=== PATIENT | male | born 1985 | race American Indian/Alaskan Native ===

== ENCOUNTER 2017-04-30 16:32 | Emergency (ER) | payer SELFPAY ==
[2017-04-30 17:01] VITALS: BP 117/61
== END 2017-04-30 19:20 | disposition left against medical advice (07) ==
LOC: ED 16:32
DX: R73.9 Hyperglycemia, unspecified (principal); Z53.21 Procedure and treatment not carried out due to patient leaving prior to being seen by health care provider
CPT/HCPCS: 82962

== ENCOUNTER 2018-04-12 09:09 | Emergency (ER) | payer SELFPAY ==
[2018-04-12 09:18] VITALS: BP 169/101
--- NOTE | 2018-04-12 09:55 | Emergency Department Report ---
ED Eye Problem HPI - General Chief complaint: Eye Problems Stated complaint: CANT SEE OUT OF LT EYE/RT EYE BLURR Time Seen by Provider: 04/12/18 09:35 Source: patient Mode of arrival: Ambulatory Limitations: No Limitations - History of Present Illness Initial comments: Mr. Hinkle is a very pleasant 34-year-old male with history of insulin-dependent diabetes since age of 12 who presents with blurry vision. He has history of severe diabetic retinopathy. He has been followed closely over the years by chain machine operator Dr. Damico on the eye center in [place]. He's had multiple interventions including laser surgery and eye injections to treat diabetic retinopathy. Last eye exam by Dr. Salas was in November four months prior. Unfortunately as well as the staff. Consequently he no longer has health insurance. He has started a new job without the benefit of health insurance. He is unable to afford health insurance to the [employer]. Over the 2 weeks ago minimal vision out of the left eye. On the right eye he has had very vision. Denies pain. Denies headache. Denies other neurological complaints such as unsteady gait or speech disturbances. Denies paralysis or paresthesias. PCP Dr. Binta Boyer. In November, chain machine operator strongly encouraged him to obtain the care of an editorial manager. He reports that his Hemoglobin A1c is 6.3. He takes metformin and Tresiba for diabetes treatment. -: Gradual, week(s) (2) Onset Description: gradual Location: right eye, left eye If Injury: none Eye Symptoms: decreased vision, blurry vision Severity: severe Context: other (diabetic retinopathy) Associated Symptoms: none - Related Data Allergies Allergy/AdvReac Type Severity Reaction Status Date / Time No Known Allergies Allergy Verified 04/12/18 09:12 ED Review of Systems ROS: Stated complaint: CANT SEE OUT OF LT EYE/RT EYE BLURR Other details as noted in HPI Comment: All other systems reviewed and negative Constitutional: denies: fever, malaise Respiratory: denies: cough Cardiovascular: denies: chest pain Endocrine: denies: excessive sweating Gastrointestinal: denies: nausea, vomiting ED Past Medical Hx - Past Medical History Previous Medical History?: Yes Hx Hypertension: Yes (non-compliant) Hx Diabetes: Yes - Surgical History Past Surgical History?: No - Social History Smoking Status: Former Smoker Substance Use Type: Alcohol ED Physical Exam - General Limitations: No Limitations General appearance: alert, in no apparent distress - Head Head exam: Present: atraumatic, normocephalic - Eye Eye exam: Present: normal appearance - Expanded Eye Exam Expanded Eyelids: Normal Inspection: Right (normal bilaterall), Laceration: Bilateral (none), Stye: Bilateral (none), Erythema: Bilateral (none), Swelling: Bilateral (none) Pupils: Regular, Round: Bilateral, Reactive: Bilateral Sclera/Conjunctival: Normal Inspection: Bilateral Anterior chamber: Normal Inspection: Bilateral Posterior chamber: Hemorrhage: Bilateral (several small retinal hemorrhages seen bilaterally in both eye, no vitreous hemorrhage) - ENT ENT exam: Present: mucous membranes moist - Neck Neck exam: Present: normal inspection - Respiratory Respiratory exam: Present: normal lung sounds bilaterally. Absent: respiratory distress - Cardiovascular Cardiovascular Exam: Present: regular rate, normal rhythm. Absent: systolic murmur, diastolic murmur, rubs, gallop - GI/Abdominal GI/Abdominal exam: Present: soft, normal bowel sounds - Rectal Rectal exam: Present: deferred - Extremities Exam Extremities exam: Present: normal inspection - Back Exam Back exam: Present: normal inspection - Neurological Exam Neurological exam: Present: alert, oriented X3, normal gait - Psychiatric Psychiatric exam: Present: normal affect, normal mood - Skin Skin exam: Present: warm, dry, intact, normal color. Absent: rash ED Course Vital Signs 04/12/18 09:12 Temperature 97.4 F L Pulse Rate 88 Respiratory 16 Rate Blood Pressure 169/101 O2 Sat by Pulse 100 Oximetry ED Medical Decision Making - Medical Decision Making Mr. Hinkle has hx of severe diabetic retinopathy which is rapidly progressive. I strongly encouraged him to call his personal chain machine operator today to work out financial arrangement for definitive care. I have also provided several referral in the outpatient setting for ophthlamologist. He does have ample supply of MEtformin and Tresiba currently. I also recommended speaking with his stephanie soto's tourist information officer for outpatient resources. He does not qualify for Medicaid. He was referred to the [facility] by personnel in the Medicaid division. However, he explained that the plans were too expensive. We provided resources and recommendations. I am concerned that diabetes is not well controlled considering that his chain machine operator referred him to an editorial manager. Critical care attestation.: If time is entered above; I have spent that time in minutes in the direct care of this critically ill patient, excluding procedure time. ED Disposition Clinical Impression: Diabetic retinopathy associated with type 1 diabetes mellitus, Visual disturbances Disposition: DC-01 TO HOME OR SELFCARE Is pt being admited?: No Does the pt Need Aspirin: No Condition: Stable Instructions: Diabetic Retinopathy (ED) Additional Instructions: Please call Dr. Damico today for recommendations. Referrals: PEARL OBRIEN MD [Staff Physician] - 3-5 Days
== END 2018-04-12 10:29 | disposition home or self-care (01) ==
LOC: ED 09:09
DX: E10.319 Type 1 diabetes mellitus with unspecified diabetic retinopathy without macular edema (principal); I10 Essential (primary) hypertension; Z87.891 Personal history of nicotine dependence
CPT/HCPCS: 82962; 99283